=== PATIENT | female | born 1955 | race Caucasian/White ===

== ENCOUNTER 2019-07-05 08:31 | Outpatient (CLI) | payer MEDICARE, OTHER, SELFPAY | END 2019-07-05 08:32 | disposition home or self-care (01) | PROVIDERS: Family Provider Family Medicine; PCP Family Medicine; Referring Provider Specialist; Visit Provider Specialist | DX: M48.062 Spinal stenosis, lumbar region with neurogenic claudication (principal) | CPT/HCPCS: L0637 ==

== ENCOUNTER 2019-12-24 06:37 | Outpatient (CLI) | payer MEDICARE, OTHER, SELFPAY ==
[2019-12-24 07:15] LABS: Basophils # 0.1 10^3/uL (0.0-0.1); Basophils % 0.7 %; Eosinophils # 0.3 10^3/uL (0.0-0.8); Hematocrit 41.3 % (37.0-47.0); Hemoglobin 13.4 g/dL (11.5-15.3); Lymphocytes # 3.9 10^3/uL (0.8-4.8); Mean Corpuscular HGB Conc 32.4 g/dL (30.0-36.0); Mean Corpuscular Hemoglobin 28.6 pg (28.0-34.0); Mean Corpuscular Volume 88.2 fL (81-99); Mean Platelet Volume 12.8 fL (7.4-10.4); Monocytes # 0.6 10^3/uL (0.2-0.9); Monocytes % 6.7 %; Neutrophils # 3.41 10^3/uL (1.8-7.7); Neutrophils % 41.4 %; Nucleated Red Blood Cells % 0 %; Platelet Count 251 10^3/cmm (130-400); Red Blood Count 4.68 10^6/uL (4.1-5.3); Red Cell Distribution Width 13.2 % (12.1-15.1); White Blood Count 8.2 10^3/uL (4.0-10.0)
[2019-12-24 07:34] LABS: Estmated Average Glucose 146; Hemoglobin A1C 6.7 % (4.0-6.0)
[2019-12-24 07:42] LABS: Alanine Aminotransferase 23 U/L (0-33); Albumin Level 4.9 g/dL (3.5-5.2); Alkaline Phosphatase 70 IU/L (35-105); Anion Gap 14.2 (5-19); Aspartate Amino Transferase 20 U/L (0-32); Blood Urea Nitrogen 24 mg/dL (8-23); Calcium 9.9 mg/dL (8.5-10.5); Carbon Dioxide 28 mmol/L (22-29); Chloride 99 mmol/L (98-107); Chol HDL Ratio 2.93 mg/dL (0.0-4.40); Cholesterol 126 mg/dL (0-200); Free T4 Free Thyroxine 1.14 ng/dL (0.82-1.77); Globulin 2.9 g/dL (1.3-4.6); Glomerular Filtration Rate 55.6 mL/min (90-130); Glucose 132 mg/dL (65-115); HDL Cholesterol 43 mg/dL (60-100); LDL Cholesterol Calculated 53 mg/dL (50-129); LDL HDL Ratio 1.23 RATIO (0.00-3.22); Osmolality Calculated 283 mOsm/kg (285-295); Potassium 4.2 mmol/L (3.5-5.1); Sodium 137 mmol/L (136-145); Thyroid Stimulating Hormone 1.25 uIU/mL (0.27-4.20); Total Bilirubin 0.3 mg/dL (0.15-1.2); Total Protein 7.8 g/dL (6.6-8.7); Triglycerides 148 mg/dL (0-150)
== END 2019-12-24 06:38 | disposition home or self-care (01) ==
PROVIDERS: PCP Family Medicine; Visit Provider Nurse Practitioner Family
DX: I10 Essential (primary) hypertension (principal); E11.9 Type 2 diabetes mellitus without complications
CPT/HCPCS: 36415; 80053; 80061; 83036; 84439; 84443; 85025

== ENCOUNTER 2020-06-15 06:38 | Outpatient (CLI) | payer MEDICARE, OTHER, SELFPAY ==
--- NOTE | 2020-06-15 | XR_ITS ---
WS: [id number] Exam: XR foot LT min 3V* [id number] Date/Time of Exam: 06/15/2020 7:02 AM Reason For Exam: LEFT FOOT PAIN No fracture or dislocation. No soft tissue foreign bodies are seen. Mild degenerative changes in the midfoot joints. XR/XR foot LT min 3V* [id number] IMPRESSION: 1. No fracture or dislocation. Mild degenerative changes.
[2020-06-15 07:37] LABS: Hematocrit 39.5 % (37.0-47.0); Hemoglobin 12.9 g/dL (11.5-15.3); Mean Corpuscular HGB Conc 32.7 g/dL (30.0-36.0); Mean Corpuscular Hemoglobin 29.3 pg (28.0-34.0); Mean Corpuscular Volume 89.6 fL (81-99); Mean Platelet Volume 12.4 fL (7.4-10.4); Platelet Count 263 10^3/cmm (130-400); Red Blood Count 4.41 10^6/uL (4.1-5.3); Red Cell Distribution Width 13.5 % (12.1-15.1); White Blood Count 7.5 10^3/uL (4.0-10.0)
[2020-06-15 07:46] LABS: Alanine Aminotransferase 20 U/L (0-33); Albumin Level 4.7 g/dL (3.5-5.2); Alkaline Phosphatase 72 IU/L (35-105); Aspartate Amino Transferase 19 U/L (0-32); Blood Urea Nitrogen 15 mg/dL (8-23); Calcium 9.6 mg/dL (8.5-10.5); Carbon Dioxide 26 mmol/L (22-29); Chloride 97 mmol/L (98-107); Globulin 2.8 g/dL (1.3-4.6); Glucose 120 mg/dL (65-115); Osmolality Calculated 278 mOsm/kg (285-295); Sodium 133 mmol/L (136-145); Total Bilirubin 0.3 mg/dL (0.15-1.2); Total Protein 7.5 g/dL (6.6-8.7)
[2020-06-15 07:55] LABS: Estmated Average Glucose 126
[2020-06-15 08:04] LABS: Absolute Eosinophils 0.4 10^3/cmm (0.0-0.7); Eosinophils 6 %; Lymphocytes 49 %; Monocytes Absolute 0.3 10^3/cmm (0.1-0.6); Platelet Estimate Normal (Normal); Segmented Neutrophils 40 %; Total Cells Counted 100 (0-100)
[2020-06-15 08:06] LABS: Creatinine Urine, Random 130 mg/dL (28-217)
[2020-06-15 08:07] LABS: Microalbum Creatinine Ratio Ur 8 mg/dL (0-20); Microalbumin Random Urine 1 ug/dL (0-20)
== END 2020-06-15 06:39 | disposition home or self-care (01) ==
PROVIDERS: PCP Family Medicine; Visit Provider Nurse Practitioner Family
DX: M79.672 Pain in left foot (principal); I10 Essential (primary) hypertension; E11.9 Type 2 diabetes mellitus without complications
CPT/HCPCS: 36415; 73630; 80053; 82044; 83036; 85007; 85027

== ENCOUNTER 2020-07-21 11:18 | Outpatient (CLI) | payer MEDICARE, SELFPAY ==
--- NOTE | 2020-07-21 11:38 | XR_ITS ---
WS: [id number] Lumbar spine, 3 views, 07/21/2020 Clinical Data: LUMBAR AND SACRAL SPONDYLARTHRITIS Comparison: Lumbar spine, 04/15/2017. Findings: No compression fractures are seen. Degenerative disc narrowing at L4-L5 and L5-S1 is seen. There is a 0 6 cm subluxation of L4 on L5. The transverse processes and SI joints are normal. Facet joint arthr itis is present at L4 and L5. The transverse processes and SI joints are not remarkable. There is a g enerator on the right side of the abdomen probably in the posterior subcutaneous tissues. XR/XR lumbar spine 2-3V* [id number] Impression: 1. Degenerative disc narrowing at L4-L5 and L5-S1. 2. 0.6 cm subluxation of L4 on L5 unchanged. 3. Facet joint arthritis at L4 and L5.
== END 2020-07-21 11:19 | disposition home or self-care (01) ==
PROVIDERS: PCP Family Medicine; Visit Provider Nurse Practitioner Family
DX: M47.816 Spondylosis without myelopathy or radiculopathy, lumbar region (principal); M47.818 Spondylosis without myelopathy or radiculopathy, sacral and sacrococcygeal region; S33.140A Subluxation of L4/L5 lumbar vertebra, initial encounter; X58.XXXA Exposure to other specified factors, initial encounter
CPT/HCPCS: 72100

== ENCOUNTER 2020-08-18 12:52 | Outpatient (CLI) | payer MEDICARE, SELFPAY ==
--- NOTE | 2020-08-18 12:59 | XR_ITS ---
WS: [id number] INDICATION: Back pain with radiculopathy TECHNIQUE: 2 views of the thoracolumbar junction FINDINGS: 2 views of the thoracolumbar junction. Dorsal spinal stimulator with electrode leads overly ing the T7-T9 vertebral bodies. Mild lumbar curve convex left. Mild spondylitic changes thoracic and lumbar spine. No acute appearing compression fractures. Mild chronic anterior wedging in the mid thor acic spine. XR/XR thoracolumbar junct [id number] IMPRESSION: Dorsal spinal stimulator with electrode leads overlying the T7-T9 v ertebral bodies dorsally appears intact.
== END 2020-08-18 12:53 | disposition home or self-care (01) ==
LOC: RADWPI 12:55
PROVIDERS: PCP Family Medicine; Visit Provider Surgery
DX: G89.4 Chronic pain syndrome (principal); M54.10 Radiculopathy, site unspecified; M51.36 Other intervertebral disc degeneration, lumbar region
CPT/HCPCS: 72080

== ENCOUNTER 2021-01-02 07:11 | Outpatient (CLI) | payer MEDICARE, SELFPAY ==
[2021-01-02 07:42] LABS: Basophils # 0.1 10^3/uL (0.0-0.1); Basophils % 0.7 %; Eosinophils # 0.2 10^3/uL (0.0-0.8); Eosinophils % 2.8 %; Hematocrit 38.8 % (37.0-47.0); Hemoglobin 12.8 g/dL (11.5-15.3); Lymphocytes # 4.1 10^3/uL (0.8-4.8); Lymphocytes % 49.3 %; Mean Corpuscular Hemoglobin 28.7 pg (28.0-34.0); Mean Platelet Volume 12.1 fL (7.4-10.4); Monocytes # 0.6 10^3/uL (0.2-0.9); Monocytes % 7.7 %; Neutrophils # 3.26 10^3/uL (1.8-7.7); Neutrophils % 39.3 %; Nucleated Red Blood Cells % 0 %; Platelet Count 243 10^3/cmm (130-400); Red Blood Count 4.46 10^6/uL (4.1-5.3); Red Cell Distribution Width 12.9 % (12.1-15.1); White Blood Count 8.3 10^3/uL (4.0-10.0)
[2021-01-02 08:08] LABS: Alanine Aminotransferase 20 U/L (0-33); Albumin Level 4.5 g/dL (3.5-5.2); Alkaline Phosphatase 72 IU/L (35-105); Anion Gap 12.7 (5-19); Aspartate Amino Transferase 18 U/L (0-32); Blood Urea Nitrogen 17 mg/dL (8-23); Carbon Dioxide 29 mmol/L (22-29); Chloride 93 mmol/L (98-107); Globulin 2.4 g/dL (1.3-4.6); Glucose 104 mg/dL (65-115); Osmolality Calculated 274 mOsm/kg (285-295); Potassium 3.7 mmol/L (3.5-5.1); Sodium 131 mmol/L (136-145); Total Bilirubin 0.3 mg/dL (0.15-1.2); Total Protein 6.9 g/dL (6.6-8.7)
[2021-01-02 08:15] LABS: Estmated Average Glucose 137; Hemoglobin A1C 6.4 % (4.0-6.0)
== END 2021-01-02 07:12 | disposition home or self-care (01) ==
LOC: LAB 07:17
PROVIDERS: PCP Family Medicine; Visit Provider Nurse Practitioner Family
DX: I10 Essential (primary) hypertension (principal); E11.9 Type 2 diabetes mellitus without complications
CPT/HCPCS: 80053; 83036; 85025

== ENCOUNTER → 2021-01-12 13:45 | Outpatient (BNVA) | payer MEDICARE, SELFPAY | PROVIDERS: PCP Family Medicine; Visit Provider Surgery | DX: Z11.52 Encounter for screening for COVID-19 (principal) | CPT/HCPCS: 87635 ==

== ENCOUNTER 2021-01-18 08:31 | Day surgery (SDC) | payer MEDICARE, SELFPAY ==
--- NOTE | 2021-01-18 09:03 | ANES.PREANE2 ---
Pre-Anesthetic Assessment Pre-Anesthetic Assessment: Height/Weight: Height 1.6 m Weight 104.326 kg Preop Diagnosis: LUQ pains Proposed Procedure: Operation Date: 01/18/21 10:00 Proposed Procedures p EGD/colon 43213 69221 Z12.11 R10.12(Not Applicable) - Reilly Sherman MD s Colonoscopy(Not Applicable) - Reilly Sherman MD Familial anesthetic complications: PONV Was Beta Shailesh taken within 24 hours: Yes Was Clonidine taken within 24 hours: N/A Last intake: > 8hrs Social: Social History: No alcohol and No tobacco Exam: Pre-Anes Outpt Exam: alert, oriented x 3, clear to auscultation bilaterally and regular rate & rhythm Airway: Cervical ROM: WNL (mild limited extension - arthritis) MP: 2 Dentition: False CV/HEM: CV/HEM: HTN GI: GI: GERD Metabolic: Metabolic: DM, Hyperlipidemia, Morbid obesity and Thyroid Musc/skel: Musc/skel: Lower Back Pain Comments: SCS implant Neuropsych: Neuropsych: Neuropathy Anesthetic Plan: ASA status: 3 Anesthesia: MAC Risk of > 500 ml blood loss (7ml/kg in children): No PFSH Anesthesia PFSH: Medical History Diabetes GERD (gastroesophageal reflux disease) Hypercholesterolemia Hypothyroidism Osteoarthritis Surgical History History of arthroplasty of knee (~2013) History of colonoscopy with polypectomy (2007) History of esophagogastroduodenoscopy (EGD) (~2018) History of hysterectomy (~1985) History of laminectomy (~2017) History of laparoscopic cholecystectomy (~1985) S/P BSO (bilateral salpingo-oophorectomy) Family History Denies family history of Anesthesia complication Bleeding disorder Social History Smoking and tobacco status: never smoked Alcohol intake: never Desire information about substance/drug rehabilitation?: No Adopted: No Caregiver/support person: Yes Lives independently: Yes Household members: family Housing: House Marital status: / service: No Current occupational status: employed Current occupational exposures/hazards: No Pets and animals: No History of recent travel: No Sexually active: No Current gender identity: Female Millie/Confucianist: Taoist Special millie needs: No Agree to transfusion: No Financial difficulty paying for basics: Decline to Answer Data Anesthesia Cardiac Studies: No Data to Display
[2021-01-18 09:15] VITALS: BP 142/02; PULSE 94; RESP 18; TEMP 36.5; O2SAT 97
--- NOTE | 2021-01-18 09:37 | W.PM.OPSUD ---
Surgery/Procedure H&P Update DATE OF PROCEDURE: January 18, 2021 DATE H&P PERFORMED: 01/08/21 H&P UPDATE INFORMATION: I have reviewed H&P completed within last 30 days, I have examined patient prior to procedure and No changes to prior documentation PREOP DIAGNOSIS: LUQ pains PLANNED PROCEDURE: Operation Date: 01/18/21 10:00 Proposed Procedures p EGD/colon 50074 60667 Z12.11 R10.12(Not Applicable) - Reilly Sherman MD s Colonoscopy(Not Applicable) - Reilly Sherman MD
[2021-01-18] MEDS: sodium chloride 0.9% 1,000 ML 30 ML IV (09:51)
[2021-01-18 10:08] LABS: Glucose Point of Care 142 mg/dL (70-110)
[2021-01-18 10:52] VITALS: BP 90/55; PULSE 90; RESP 18; TEMP 36.2; O2SAT 93
[2021-01-18 10:59] VITALS: BP 102/59; PULSE 87; RESP 18; TEMP 36.6; O2SAT 96
== END 2021-01-18 11:22 | disposition home or self-care (01) ==
PROVIDERS: PCP Nurse Practitioner Family; Visit Provider Surgery
PROC: 0DJ08ZZ Inspection of Upper Intestinal Tract, Via Natural or Artificial Opening Endoscopic (ICD-10-PCS; CPT 43235; principal; 2021-01-18 10:00)
PROC: 0DJD8ZZ Inspection of Lower Intestinal Tract, Via Natural or Artificial Opening Endoscopic (ICD-10-PCS; CPT 45378; 2021-01-18 10:00)
DX: Z12.11 Encounter for screening for malignant neoplasm of colon (principal); R10.12 Left upper quadrant pain; K44.9 Diaphragmatic hernia without obstruction or gangrene; K57.30 Diverticulosis of large intestine without perforation or abscess without bleeding; D12.8 Benign neoplasm of rectum; I10 Essential (primary) hypertension; K21.9 Gastro-esophageal reflux disease without esophagitis; E78.5 Hyperlipidemia, unspecified; E66.01 Morbid (severe) obesity due to excess calories; Z68.41 Body mass index [BMI] 40.0-44.9, adult; E11.40 Type 2 diabetes mellitus with diabetic neuropathy, unspecified; E03.9 Hypothyroidism, unspecified; E78.00 Pure hypercholesterolemia, unspecified; M19.90 Unspecified osteoarthritis, unspecified site
CPT/HCPCS: 36416; 43239; 45380; 82962; 88305; 96360; J2704; J7030

== ENCOUNTER 2021-10-31 15:40 | Outpatient (CLI) | payer MEDICARE, OTHER, SELFPAY ==
[2021-10-31 17:00] LABS: Basophils # 0.1 10^3/uL (0.0-0.1); Basophils % 0.7 %; Eosinophils # 0.3 10^3/uL (0.0-0.8); Eosinophils % 3.6 %; Hematocrit 41.3 % (37.0-47.0); Hemoglobin 13.8 g/dL (11.5-15.3); Lymphocytes # 3.8 10^3/uL (0.8-4.8); Lymphocytes % 39.9 %; Mean Corpuscular HGB Conc 33.4 g/dL (30.0-36.0); Mean Corpuscular Hemoglobin 29.7 pg (28.0-34.0); Mean Platelet Volume 12.9 fL (7.4-10.4); Monocytes # 0.9 10^3/uL (0.2-0.9); Monocytes % 9.5 %; Neutrophils # 4.34 10^3/uL (1.8-7.7); Nucleated Red Blood Cells % 0 %; Platelet Count 264 10^3/cmm (130-400); Red Blood Count 4.64 10^6/uL (4.1-5.3); Red Cell Distribution Width 12.9 % (12.1-15.1); White Blood Count 9.5 10^3/uL (4.0-10.0)
[2021-10-31 17:42] LABS: Alanine Aminotransferase 22 U/L (0-33); Albumin Level 4.9 g/dL (3.5-5.2); Alkaline Phosphatase 53 IU/L (35-105); Anion Gap 15.7 (5-19); Aspartate Amino Transferase 22 U/L (0-32); Blood Urea Nitrogen 16 mg/dL (8-23); Calcium 9.5 mg/dL (8.5-10.5); Carbon Dioxide 29 mmol/L (22-29); Chloride 94 mmol/L (98-107); Chol HDL Ratio 3.41 mg/dL (0.0-4.40); Cholesterol 126 mg/dL (0-200); Free T4 Free Thyroxine 1.33 ng/dL (0.82-1.77); Globulin 2.6 g/dL (1.3-4.6); Glomerular Filtration Rate 49.5 mL/min (90-130); Glucose 127 mg/dL (65-115); HDL Cholesterol 37 mg/dL (60-100); LDL Cholesterol Calculated 58 mg/dL (50-129); LDL HDL Ratio 1.57 RATIO (0.00-3.22); Osmolality Calculated 283 mOsm/kg (285-295); Potassium 3.7 mmol/L (3.5-5.1); Sodium 135 mmol/L (136-145); Thyroid Stimulating Hormone 1.58 uIU/mL (0.27-4.20); Total Bilirubin 0.4 mg/dL (0.15-1.2); Total Protein 7.5 g/dL (6.6-8.7); Triglycerides 156 mg/dL (0-150)
== END 2021-10-31 15:41 | disposition home or self-care (01) ==
LOC: LAB 15:43
PROVIDERS: PCP Family Medicine; Visit Provider Family Medicine
DX: E03.9 Hypothyroidism, unspecified (principal); K21.9 Gastro-esophageal reflux disease without esophagitis; E78.00 Pure hypercholesterolemia, unspecified; M54.16 Radiculopathy, lumbar region
CPT/HCPCS: 80053; 80061; 84439; 84443; 85025

== ENCOUNTER 2021-11-06 12:41 | Outpatient (CLI) | payer MEDICARE, OTHER, SELFPAY ==
--- NOTE | 2021-11-06 13:08 | MM_ITS ---
WS: [id number] BILATERAL 3D TOMOSYNTHESIS DIGITAL SCREENING MAMMOGRAPHY WITH CAD CLINICAL INFORMATION: BrCA screening HISTORY: Screening mammogram. No current complaints. COMPARISON: TECHNIQUE: Bilateral CC and MLO views. FINDINGS: Scattered fibroglandular densities bilaterally. A few incidental punctate calcifications. Vascular ca lcification. No suspicious focal mass, asymmetry, calcifications, or architectural distortion. No laurita dence of malignancy. MM/[place] [id number] IMPRESSION: BI-RADS: 2-Benign FOLLOW UP: 1 Year Follow-up Recommend return to annual screening mammography.
== END 2021-11-06 12:42 | disposition home or self-care (01) ==
LOC: RAD 12:42
PROVIDERS: PCP Family Medicine; Visit Provider Family Medicine
DX: Z12.31 Encounter for screening mammogram for malignant neoplasm of breast (principal)
CPT/HCPCS: 77063; 77067

== ENCOUNTER 2022-02-27 14:03 | Outpatient (CLI) | payer MEDICARE, OTHER, SELFPAY ==
[2022-02-27 15:02] LABS: Estmated Average Glucose 140; Hemoglobin A1C 6.5 % (4.0-6.0)
== END 2022-02-27 14:04 | disposition home or self-care (01) ==
LOC: LAB 14:08
PROVIDERS: PCP Family Medicine; Visit Provider Family Medicine
DX: E11.9 Type 2 diabetes mellitus without complications (principal)
CPT/HCPCS: 36415; 83036